=== PATIENT | male | born 1930 | race Caucasian/White ===

== ENCOUNTER 2016-10-21 15:08 | Emergency (ER) | payer MEDICARE, OTHER ==
[2016-10-21 17:48] LABS: ABSOLUTE NEUTROPHIL COUNT 2.7 K/mm3 (1.8-7.7); BASO % 0.9 % (0.2-1.0); EOS # 0.2 (0.0-0.5); EOS % 3.7 % (0.9-2.9); HEMATOCRIT 42.9 % (32.0-52.0); HEMOGLOBIN 13.4 gm/l (14.0-18.0); IMM NEUT% 0.4 % (0-1); LYMPH # 1.1 (1.0-4.8); LYMPH % 22.7 % (15-45); MEAN CELL VOLUME 94.5 fl (80.0-94.0); MEAN CORPUSCULAR HEMOGLOBIN 29.5 pg (27.0-31.0); MEAN CORPUSCULAR HGB CONC 31.2 g/dl (33.0-37.0); MEAN PLATELET VOLUME 9.7 fl (7.4-10.4); MONO # 0.6 (0.0-0.8); MONO % 13.8 % (4-12); NEUT % 58.5 % (43-75); PLATELET COUNT 145 K/mm3 (130-400); RED CELL DISTRIBUTION WIDTH 13.7 % (11.5-14.5)
[2016-10-21 17:57] LABS: INR 1.49
[2016-10-21 17:58] LABS: ALB/GLOB RATIO 1.7 (>1.0); ALBUMIN 4.2 gm/dL (3.5-5.7); CALCIUM 9.1 mg/dL (8.6-10.3)
== END 2016-10-21 19:30 | disposition home or self-care (01) ==
LOC: ED 15:08
DX: R19.5 Other fecal abnormalities (principal); I48.91 Unspecified atrial fibrillation; Z79.01 Long term (current) use of anticoagulants

== ENCOUNTER 2016-10-27 12:45 | Day surgery (SDC) | payer MEDICARE, OTHER ==
[2016-10-27] MEDS ORDERED: LACTATED RINGERS 1,000 ML ONE (12:50)
[2016-10-27] MEDS ORDERED: IV START KIT ONE (12:51)
[2016-10-27] MEDS ORDERED: LIDOCAINE 1% 2 ML VIAL ID PRN (12:54)
[2016-10-27] MEDS ORDERED: LACTATED RINGERS 1,000 ML IV SCH (12:54)
[2016-10-27] MEDS ORDERED: ONDANSETRON 4 MG/2ML 2 ML VIAL IV PRN (12:54)
[2016-10-27] MEDS ORDERED: PROPOFOL 20 ML IV ONE (14:10)
--- NOTE | 2016-11-01 10:21 | SURGPATH ---
[facility] [address] [place] [id number] Patient Name: CORIN MENDOZA MR#: [id number] : 1930 Gender: M Specimen #: [id number] Collected: 10/27/2016 Received: 10/31/2016 Reported: 11/01/2016 Submitting Phys: ANDREW LOMBARDI Copy To Phys: LALY HOLLOWAY [facility] Clinical History / Pre-Operative Diagnosis: GI BLEED Specimen Source / Surgical Procedure Performed: #1-HEPATIC FLEXURE; #2-MID TRANSVERSE; #3-SPLENIC TRANSVERSE Interpretation: 1. HEPATIC FLEXURE, BIOPSY: - TUBULAR ADENOMA 2. MID TRANSVERSE COLON, BIOPSY: - TUBULAR ADENOMA 3. SPLENIC TRANSVERSE COLON, BIOPSY: - TUBULAR ADENOMA Electronically Signed Out Gonzalo Welch M.D. Gross Description: #1 The specimen is received in a formalin filled container labeled with the patient's name and "hepatic flexure". A polypoid gutierrez biopsy is 0.4 x 0.3 x 0.2 cm. Totally embedded in cassette #1. #2 The specimen is received in a formalin filled container labeled with the patient's name and "mid transverse". A polypoid gutierrez biopsy is 0.3 x 0.3 x 0.3 cm. Totally embedded in cassette #2. #3 The specimen is received in a formalin filled container labeled with the patient's name and "splenic flexure". A polypoid gutierrez biopsy is 0.3 x 0.3 x 0.2 cm. Totally embedded in cassette #3. Lexy Tolliver Microscopic Description: 1. The sections show colonic mucosa exhibiting adenomatous change with a tubular architectural pattern. The changes are characterized by nuclear stratification and hyperchromasia with increased mitotic activity. High-grade dysplasia is not identified. 2. The sections show colonic mucosa exhibiting adenomatous change with a tubular architectural pattern. The changes are characterized by nuclear stratification and hyperchromasia with increased mitotic activity. High-grade dysplasia is not identified. 3. The sections show colonic mucosa exhibiting adenomatous change with a tubular architectural pattern. The changes are characterized by nuclear stratification and hyperchromasia with increased mitotic activity. High-grade dysplasia is not identified. 1: 04561 2: 61924 3: 08926 D12.3
== END 2016-10-27 16:50 | disposition home or self-care (01) ==
LOC: SDC 12:45
PROVIDERS: ATTEND Surgery
PROC: 0DBL8ZX Excision of Transverse Colon, Via Natural or Artificial Opening Endoscopic, Diagnostic (ICD-10-PCS; principal; 2016-10-27)
PROC: 0DBL8ZX Excision of Transverse Colon, Via Natural or Artificial Opening Endoscopic, Diagnostic (ICD-10-PCS; 2016-10-27)
PROC: 0DBL8ZX Excision of Transverse Colon, Via Natural or Artificial Opening Endoscopic, Diagnostic (ICD-10-PCS; 2016-10-27)
DX: D12.3 Benign neoplasm of transverse colon (principal); Z85.038 Personal history of other malignant neoplasm of large intestine; Z95.0 Presence of cardiac pacemaker; I48.2 Chronic atrial fibrillation; I25.10 Atherosclerotic heart disease of native coronary artery without angina pectoris; E78.5 Hyperlipidemia, unspecified; Z79.01 Long term (current) use of anticoagulants; I65.29 Occlusion and stenosis of unspecified carotid artery; I10 Essential (primary) hypertension; H40.9 Unspecified glaucoma; M51.36 Other intervertebral disc degeneration, lumbar region; G62.9 Polyneuropathy, unspecified; I73.9 Peripheral vascular disease, unspecified; I05.9 Rheumatic mitral valve disease, unspecified; Z95.1 Presence of aortocoronary bypass graft; Z88.5 Allergy status to narcotic agent; Z87.891 Personal history of nicotine dependence
CPT/HCPCS: 45385; 45380; J7120